=== PATIENT | female | born 1990 | race Caucasian/White ===

== ENCOUNTER 2021-05-21 08:03 | Day surgery (SDCO) | payer OTHER ==
[~2021-05-21] VITALS: Ht 160 cm; Wt 104.3 kg
[2021-05-21 08:46] LABS: BILIRUBIN NEGATIVE (NEGATIVE); BLOOD NEGATIVE Ery/uL (NEGATIVE); CLARITY CLEAR (CLEAR); COLOR YELLOW (YELLOW); GLUCOSE (U) NORMAL (NORMAL); LEUKOCYTES NEGATIVE Leu/uL (NEGATIVE); NITRITE NEGATIVE (NEGATIVE); PROTEIN NEGATIVE (NEGATIVE); SPECIFIC GRAVITY >=1.030 (1.001-1.030); UROBILINOGEN 0.2 mg/dL (0.2-1.0); pH 5.5 (5.0-9.0)
[2021-05-21 08:46] LABS: BASOPHIL 0.5 % (0-2); EOSINOPHIL 1.7 % (0-5); HCT 42.2 % (37.0-47.0); HGB 13.7 g/dl (12.5-16.0); LYMPHOCYTE 14.7 % (15-48); MCH 28.7 pg (25.0-31.0); MCHC 32.5 g/dL (32.0-36.0); MCV 88.5 fL (78.0-100.0); MONOCYTE 6.6 % (0-12); MPV 9.5 fL (6.0-9.5); NRBC 0; PLT 302 K/uL (150-400); RBC 4.77 M/uL (4.20-5.40); WBC 8.4 K/uL (4.0-10.5)
[2021-05-21 09:03] LABS: ALBUMIN 3.7 g/dL (3.4-5.0); BILIRUBIN - TOTAL 0.4 mg/dL (0.2-1.0); BUN/CREAT RATIO (CALC) 14.8 RATIO; CREATININE 0.54 mg/dL (0.51-0.95); GLOBULIN (CALCULATION) 3.7 g/dL; POTASSIUM 3.8 mmol/L (3.5-5.1); TOTAL PROTEIN 7.4 g/dL (6.4-8.2)
[2021-05-21 12:04] LABS: INR 1.1 (0.9-1.2); PROTHROMBIN TIME 13.6 SECONDS (11.8-13.4); PTT 31.1 SECONDS (24.4-34.7)
[2021-05-21] MEDS ORDERED: MOTRIN600 MG PO (17:32)
[2021-05-21] MEDS ORDERED: OXY-IR 5MG5 MG PO (17:32)
[2021-05-21] MEDS ORDERED: COLACE100 MG PO (17:32)
[2021-05-21] MEDS ORDERED: ACETAMINOPHEN500 M1 PO (17:32)
--- NOTE | 2021-05-21 19:49 | NUR ---
CALLED DR. FRIEND FOR ORDERS TO FLOOR. RECEIVED ORDER PER PHONE CALL.
== END 2021-05-22 15:15 | disposition home or self-care (01) ==
LOC: FER 08:03 → FAS 14:38 → FMS 18:09
PROVIDERS: Emergency Medicine; ADMIT Student in an Organized Health Care Education/Training Program
DX: K80.12 Calculus of gallbladder with acute and chronic cholecystitis without obstruction (principal); K66.0 Peritoneal adhesions (postprocedural) (postinfection); R59.0 Localized enlarged lymph nodes; U07.1 COVID-19; Z88.8 Allergy status to other drugs, medicaments and biological substances
CPT/HCPCS: 36415; 71045; 76705; 80053; 81003; 82150; 83690; 85025; 85610; 85730; 93005; G0378; J1100; J1170; J1644; J1885; J2250; J2270; J2405; J2543; J2704; J3010; J7030; J7120; U0002